=== PATIENT | female | born 1990 | race Caucasian/White ===

== ENCOUNTER 2022-07-28 05:22 | Inpatient (IN) | payer BC ==
[2022-07-28] MEDS ORDERED: Ibuprofen 800 MG TAB PO PRN (05:42)
[2022-07-28] MEDS ORDERED: Butorphanol Tartrate 1 MG/ML VIAL SLOW IVP PRN (05:42)
[2022-07-28] MEDS ORDERED: Promethazine HCl 25 MG/ML VIAL IM PRN ×2 (05:42→13:30)
[2022-07-28] MEDS ORDERED: hydrALAZINE 20 MG/ML VIAL SLOW IVP PRN ×2 (05:42→16:28)
[2022-07-28] MEDS ORDERED: Ondansetron PF 4 MG/2 ML Vial IVP PRN ×3 (05:42→16:28)
[2022-07-28] MEDS ORDERED: Lidocaine 1% (PF) 30 ML VIAL SC PRN (05:42)
[2022-07-28] MEDS ORDERED: HYDROcodone/Acetaminophen 5/325 mg Tablet PO PRN ×4 (05:42→16:28)
[2022-07-28] MEDS ORDERED: NS w/ Oxytocin 30 units 500 ML IV SCH ×4 (06:00→16:28)
[2022-07-28] MEDS ORDERED: Lactated Ringer's 1,000 ML IV SCH (06:00)
[2022-07-28 06:30] VITALS: BMI 30.4
[2022-07-28 06:53] LABS: Hemoglobin 11.7 g/dL (12.0-15.5); Mean Corpuscular Hemoglobin 29.3 pg (27.0-33.0); Mean Corpuscular Volume 86.2 fl (81.6-98.3); Mean Platelet Volume 11.2 fl (7.4-10.4); Platelet Count 199 10x3/uL (150-450); RBC Distribution Width 13.2 % (11.5-14.5); Red Blood Cell (RBC) Count 3.99 10x6/uL (3.90-5.03); White Blood Cell (WBC) Count 11.8 10x3/uL (3.5-10.5)
[2022-07-28 07:45] LABS: HBSAg Index 0.18 S/CO (0-0.99); Hep B Surf Ag - L&D Non-Reactive S/CO (NonReactive)
[2022-07-28 07:47] LABS: Syphilis Antibody Nonreactive (Nonreactive); Syphilis Antibody Index 0.03 S/CO (<1.00 Non-Reactive)
[2022-07-28] MEDS ORDERED: Bupivacaine 0.25% HCL 30 ML VIAL ONE (08:00)
[2022-07-28] MEDS ORDERED: Fentanyl 2 mcg/Bup 0.1% Cadd 100 ML ONE (10:07)
[2022-07-28] MEDS ORDERED: diphenhydrAMINE 50 MG/ML VIAL IVP PRN (13:30)
[2022-07-28] MEDS ORDERED: Communication Order-Pharmacy FS SCH (13:30)
[2022-07-28] MEDS ORDERED: Naloxone HCl 0.4 mg/ml Vial IVP PRN ×2 (13:30)
[2022-07-28] MEDS ORDERED: ePHEDrine Sulfate 50 MG/10 ML VIAL SLOW IVP PRN (13:30)
[2022-07-28] MEDS ORDERED: Lactated Ringer's 500 ML IV PRN (13:30)
[2022-07-28] MEDS ORDERED: Fentanyl 2 mcg/Bupivacaine 0.1% Cassette 100 ML EPIDURAL SCH (13:30)
[2022-07-28] MEDS ORDERED: Acetaminophen 325 MG TAB PO PRN (13:30)
[2022-07-28] MEDS ORDERED: Moisturizing Cream (Eucerin) 113 GM JAR TOP PRN (13:30)
[2022-07-28] MEDS ORDERED: Bisacodyl 10 MG SUPP PR PRN (16:28)
[2022-07-28] MEDS ORDERED: Milk Of Magnesia 30 ML UDCUP PO PRN (16:28)
[2022-07-28] MEDS ORDERED: Benzocaine-Menthol 82.5 ML CAN TOP PRN (16:28)
[2022-07-28] MEDS ORDERED: Preparation H Ointment 28 GM TUBE PR PRN (16:28)
[2022-07-28] MEDS ORDERED: diphenhydrAMINE 25 MG CAP PO PRN (16:28)
[2022-07-28] MEDS ORDERED: Boostrix 0.5 ML (Tdap) VIAL (>/=7 yrs of age) IM ONE (16:28)
[2022-07-28] MEDS: Ferrous Sulfate 325 MG TAB PO SCH (17:26)
[2022-07-28] MEDS: Ibuprofen 800 MG TAB PO SCH (21:37)
[2022-07-28] MEDS: Docusate 100 MG CAP PO SCH (21:37)
[2022-07-29] MEDS: Ibuprofen 800 MG TAB PO SCH ×2 (06:00→13:52)
[2022-07-29] MEDS: Ferrous Sulfate 325 MG TAB PO SCH ×2 (07:24→13:53)
[2022-07-29] MEDS ORDERED: Prenatal Vitamin 1 TAB PO SCH (09:00)
[2022-07-29] MEDS: Docusate 100 MG CAP PO SCH (09:19)
[2022-07-29 16:11] VITALS: BP 117/64; TEMP 98.6
== END 2022-07-29 16:55 | disposition home or self-care (01) | DRG 805 ==
LOC: CSHLD 05:22 → CSHPP 16:50
PROVIDERS: ADMIT Obstetrics & Gynecology; ATTEND Obstetrics & Gynecology
PROC: 10E0XZZ Delivery of Products of Conception, External Approach (ICD-10-PCS; principal; 2022-07-28)
PROC: 0HQ9XZZ Repair Perineum Skin, External Approach (ICD-10-PCS; 2022-07-28)
DX: O26.62 Liver and biliary tract disorders in childbirth (principal); K83.1 Obstruction of bile duct; Z37.0 Single live birth; O70.0 First degree perineal laceration during delivery; Z79.899 Other long term (current) drug therapy; Z3A.37 37 weeks gestation of pregnancy
CPT/HCPCS: 51702; 85027; 86780; 86850; 86900; 86901; 87340; J2590; S0020